=== PATIENT | female | born 1950 | race Asian ===

== ENCOUNTER 2018-11-05 18:09 | Inpatient (IN) | payer BC ==
[~2018-11-05] VITALS: Ht 152.4 cm; Wt 47.6 kg
[2018-11-05] MEDS ORDERED: ACET-2605 PO (18:30)
[2018-11-05] MEDS ORDERED: TRAZ-182 PO (18:30)
[2018-11-05] MEDS ORDERED: HYDR200T81 PO (18:30)
[2018-11-05] MEDS ORDERED: LOSA1TAB36 PO (18:30)
[2018-11-05] MEDS ORDERED: THYR30TA2 PO (18:30)
[2018-11-05] MEDS ORDERED: LORA0.5T PO (18:30)
[2018-11-05] MEDS ORDERED: DIVA125T2 PO (18:30)
--- NOTE | 2018-11-05 18:44 | NUR ---
DR DENIS AT BEDSIDE FOR EVAL.
--- NOTE | 2018-11-05 18:51 | NUR ---
IV LINE STARTED BLOOD DRAWN AND SENT TO LAB.
--- NOTE | 2018-11-05 18:56 | NUR ---
RADIOLOGY AT BEDSIDE FOR CHEST XRAY.
[2018-11-05 19:00] LABS: BASOPHILS % (AUTO) 0.4 % (0.0-2.0); EOSINOPHILS % (AUTO) 0.1 % (0.0-6.0); HEMATOCRIT 37 % (33-45); HEMOGLOBIN 12.3 g/dL (11.5-14.8); LYMPHOCYTES % (AUTO) 9.9 % (20.0-44.0); MEAN CORPUSCULAR HGB CONC 34 g/dl (31.0-36.0); MEAN CORPUSCULAR VOLUME 97 fL (82-100); MONOCYTES % (AUTO) 9.7 % (2.0-12.0); NEUTROPHILS # (AUTO) 8.4 /CMM (1.8-8.9); NEUTROPHILS % (AUTO) 79.9 % (43.0-81.0); PLATELET COUNT (AUTO) 381 /CMM (150-450); RED BLOOD CELL COUNT(AUTO) 3.75 MIL/uL (4.0-5.2); WHITE BLOOD COUNT (AUTO) 10.5 K/uL (4.3-11.0)
[2018-11-05] MEDS ORDERED: PIPERACILLIN /TAZOBACTAM 3.375 G in IV D5W 50 ML IV ONE (19:00)
[2018-11-05] MEDS ORDERED: IV NS 0.9% 1,000 ML BAG IV ONE (19:00)
[2018-11-05] MEDS ORDERED: ACETAMINOPHEN 650 MG/SUPP.RECT RC ONE (19:00)
[2018-11-05 19:20] LABS: CALCIUM, SERUM 8.6 mg/dL (8.5-10.1); CARBON DIOXIDE 37 mmol/L (21-32); CHLORIDE 103 mmol/L (98-107); CREATININE 0.7 mg/dL (0.6-1.3); GLUCOSE 127 mg/dL (74-106); POTASSIUM 3.8 mmol/L (3.5-5.1); SODIUM SERUM 143 mmol/L (136-145); UREA NITROGEN, BLOOD 29 mg/dL (7-18)
--- NOTE | 2018-11-05 19:22 | NUR ---
REPORT TO LILI MORA FOR TRANSFER OF CARE.
--- NOTE | 2018-11-05 19:23 | NUR ---
RECEIVED REPORT FROM KELLY MORA FOR XIAO
[2018-11-05 19:26] LABS: ALANINE AMINOTRANSFERASE 23 U/L (12-78); ALBUMIN 2.6 g/dL (3.4-5.0); ALKALINE PHOSPHATASE 70 U/L (46-116); ASPARTATE AMINOTRANSFERASE 38 U/L (15-37); BILIRUBIN,DIRECT 0.2 mg/dL (0.0-0.2); BILIRUBIN,TOTAL 0.5 mg/dL (0.2-1.0); TOTAL PROTEIN, SERUM 6.8 g/dL (6.4-8.2)
[2018-11-05 19:31] LABS: BILIRUBIN,URINE MODERATE (NEGATIVE); BLOOD, URINE Moderate Ery/uL (NEGATIVE); KETONES,URINE 15 (NEGATIVE); LEUKOCYTE ESTERASE ,URINE Negative (NEGATIVE); NITRITE, URINE Negative (NEGATIVE); PH,URINE 5.5 (5.0-8.0); PROTEIN,URINE 30 mg/dl (NEGATIVE); UGLUCOSE Negative (NEGATIVE)
[2018-11-05 19:38] LABS: APPEARANCE,URINE HAZY (CLEAR)
[2018-11-05 19:39] LABS: BACTERIA,URINE Rare /HPF (None Seen); COLOR,URINE DARK YELLOW (YELLOW); SQUAMOUS EPITHELIAL CELL,UR Few /HPF (None Seen); WBC,URINE 0-2 /HPF (0-3)
[2018-11-05 19:40] LABS: MUCUS,URINE Moderate /LPF (None Seen); URINE AMORPHOUS URATE Few /HPF (None Seen)
--- NOTE | 2018-11-05 19:42 | NUR ---
PER VERBAL MD ORDER, WILL INFUSE 2,000ML NS INSTEAD OF 3,000ML NS
[2018-11-05] MEDS ORDERED: VANCOMYCIN 1 GM in IV D5W 250 ML IV ONE (20:00)
--- NOTE | 2018-11-05 20:16 | NUR ---
307-1 SEPSIS, DIPAK DNP
--- NOTE | 2018-11-05 20:24 | NUR ---
GAVE REPORT TO NGUYỄN MORA FOR XIAO
[2018-11-05] MEDS ORDERED: HYDROCODONE/APAP 5/325MG 1 EACH TABLET PO PRN (20:30)
[2018-11-05] MEDS ORDERED: ONDANSETRON HCL/PF 4 MG/2 ML VIAL IVP PRN (20:30)
[2018-11-05] MEDS ORDERED: MAG HYDROX/AL HYDROX/SIMETH 30 ML UDC PO PRN (20:30)
[2018-11-05] MEDS ORDERED: MORPHINE SULFATE INJ 2 MG/ML DISP.SYRIN IV PRN (20:30)
[2018-11-05] MEDS ORDERED: LORAZEPAM 0.5 MG TABLET PO PRN (20:30)
[2018-11-05] MEDS ORDERED: MAGNESIUM HYDROXIDE 30 ML UDC PO PRN (20:30)
[2018-11-05] MEDS ORDERED: Z GUARD REMEDY 2 OZ OINT TP PRN (20:30)
[2018-11-05] MEDS ORDERED: ACETAMINOPHEN 325 MG TABLET PO PRN (20:30)
[2018-11-05 22:00] VITALS: BP_SYST 121; BP_SYST 144; BP_DIAS 72; BP_DIAS 83
[2018-11-05] MEDS ORDERED: ENOXAPARIN SODIUM 40 MG/0.4 ML DISP.SYRIN SQ ONE (22:00)
[2018-11-05 22:15] VITALS: BP 121/72
--- NOTE | 2018-11-05 22:15 | NUR ---
PT TRANSFERRED PER ACLS PROTOCOL
--- NOTE | 2018-11-05 22:15 | NUR ---
RN MS ADMITTING OPENING NOTES RECEIVED PATIENT FROM ER VIA GURNEY SAFELY TRANSFERRED TO BED, AWAKE ALERT X1 , NOTED WITH UNCLEAR GARBLE SPEECH, MOSTLY NON VERBAL, RESPIRATIONS EVEN AND UNLABORED WITH EQUAL RISE AND FALL OF CHEST, APPEARS FREE OF ANY PAIN OR DISCOMFORT AT THIS TIME, NO FACIAL GRIMACING PRESENT, NO MOANS PRESENT, NO SOB PRESENT, REMAINS AFEBRILE AT THIS TIME, ESTEVEZ CATHETER INTACT AND DRAINING URINE VIVI AND HEMATURIA PRESENT, DRAINING WELL, WITH PROPER ALIGNMENT, RIGHT AC#18 G INTACT AND PATENT, NO REDNESS, NO INFILTRATION PRESENT, BODY ASSESSMENT DONE PICTURES TAKEN PLACED IN CHART NOTED WITH LEFT AND RIGHT HEEL AND PLANTAR SCATTERED REDNESS, LEFT ANKLE REDNESS, LEFT 5TH METATARSAL REDNESS, LEFT INNER AND OUR ARM ABRASION, SACRAL DECUB, LET HIP REDNESS, WOUND CARE DONE, KEPT CLEAN AND DRY, WILL PLACE KCI MATTRESS, REPOSITIONED OFFLOADED AFFECETED AREAS, RAILS COVERED WITH CUSHION TO PROVIDE PROTECTION, SAFETY PRECAUTIONS IN PLACE, LOW BED AND LOCKED, WILL CONTINUE TO FOLLOW MD ORDERS, PATIENT APPEARS COMFORTABLE AT THIS TIME, ORIENTED TO STAFF AND CALL LIGHT AND KEPT WITHIN REACH.
--- NOTE | 2018-11-05 22:45 | NUR ---
RN MS NOTES KCI MATTRESS PLACED.
[2018-11-05] MEDS: IV NS 0.9% 1,000 ML IV PRN (23:32)
[2018-11-05] MEDS: DIVALPROEX SODIUM 125 MG TABLET.DR PO SCH (23:33)
[2018-11-05] MEDS: TRAZODONE 50 MG TABLET PO SCH (23:33)
[2018-11-06] MEDS ORDERED: PIPERACILLIN /TAZOBACTAM 3.375 G VIAL IV ONE (00:11)
[2018-11-06] MEDS ORDERED: ZOSYN IVPB 3.375 G in IV D5W 50ml IV ONE (01:00)
[2018-11-06 06:08] LABS: BASOPHILS % (AUTO) 0.3 % (0.0-2.0); EOSINOPHILS % (AUTO) 0.6 % (0.0-6.0); HEMATOCRIT 30 % (33-45); LYMPHOCYTES % (AUTO) 14.1 % (20.0-44.0); MEAN CORPUSCULAR HGB CONC 34 g/dl (31.0-36.0); MEAN CORPUSCULAR VOLUME 97 fL (82-100); MONOCYTES # (AUTO) 0.6 /CMM (0.1-1.30); MONOCYTES % (AUTO) 7.9 % (2.0-12.0); NEUTROPHILS # (AUTO) 5.4 /CMM (1.8-8.9); NEUTROPHILS % (AUTO) 77.1 % (43.0-81.0); PLATELET COUNT (AUTO) 296 /CMM (150-450); RED BLOOD CELL COUNT(AUTO) 3.07 MIL/uL (4.0-5.2); WHITE BLOOD COUNT (AUTO) 7.1 K/uL (4.3-11.0)
--- NOTE | 2018-11-06 06:25 | NUR ---
RN MS CLOSING NOTES PATIENT IN BED AWAKE ALERT X1 , NOTED WITH UNCLEAR GARBLE SPEECH, SMALL WORDS SAID, MOSTLY NON VERBAL, RESPIRATIONS EVEN AND UNLABORED WITH EQUAL RISE AND FALL OF CHEST, APPEARS FREE OF ANY PAIN OR DISCOMFORT AT THIS TIME, NO FACIAL GRIMACING PRESENT, NO MOANS PRESENT, NO SOB PRESENT, REMAINS AFEBRILE THROUGHOUT SHIFT ESTEVEZ CATHETER INTACT AND DRAINING URINE VIVI AND HEMATURIA PRESENT, DRAINING WELL, WITH PROPER ALIGNMENT, RIGHT AC#18 G INTACT AND PATENT, NO REDNESS, NO INFILTRATION PRESENT, IVF RUNNING ORDERED ,ABX GIVEN ORDERED, WOUND CARE DONE, KEPT CLEAN AND DRY, KCI MATTRESS IN PLACE, REPOSITIONED OFFLOADED AFFECTED AREAS, RAILS COVERED WITH CUSHION TO PROVIDE PROTECTION, SAFETY PRECAUTIONS IN PLACE, LOW BED AND LOCKED, , PATIENT APPEARS COMFORTABLE AT THIS TIME, CALL LIGHT A KEPT WITHIN REACH WILL CONTINUE TO MONITOR AND ENDORSE TO NEXT SHIFT.
[2018-11-06 06:30] LABS: CALCIUM, SERUM 7.6 mg/dL (8.5-10.1); CREATININE 0.6 mg/dL (0.6-1.3); MAGNESIUM 1.9 mg/dL (1.8-2.4); PHOSPHORUS 2.4 mg/dL (2.5-4.9); POTASSIUM 3.3 mmol/L (3.5-5.1)
[2018-11-06 06:35] LABS: THYROID STIMULATING HORMONE 10.314 uIU/mL (0.358-3.74)
--- NOTE | 2018-11-06 07:10 | NUR ---
MS/RN OPENING NOTE THE PATIENT IS RECEIVED IN BED. ALERT AND ORIENTED X1. IN ROOM AIR AND DENIES SOB. RESPIRATION REGULAR AND UNLABORED. DENIES PAIN. THE PATIENT IS IN NO APPARENT DISTRESS. ESTEVEZ CATH PREVENT. NO BLADDER DISTENSION NOTED. RAC G 18 PATENT AND NORMAL SALINE INFUSING AT 75ML/HR AND NO S/S INFILTRATION NOTED. BED LOW AND LOCKED. SIDE RAILS UP X3. CALL LIGHT WITHIN REACH. WILL CONTINUE TO MONITOR.
[2018-11-06 08:00] VITALS: BP 82/54
[2018-11-06] MEDS ORDERED: FEE PK DOSING 1 MIN EA MC ONE (08:06)
[2018-11-06 09:00] VITALS: BP 101/63
[2018-11-06] MEDS: LOSARTAN/HCTZ 50-12.5MG/ 1 EA TABLET PO SCH (09:00)
[2018-11-06] MEDS ORDERED: POTASSIUM CHLORIDE 20 MEQ TAB.PRT.SR PO SCH (09:30)
[2018-11-06] MEDS: THYROID 30 MG TABLET PO SCH (09:49)
[2018-11-06] MEDS: DIVALPROEX SODIUM 125 MG TABLET.DR PO SCH ×4 (09:49→21:25)
[2018-11-06] MEDS: VANCOMYCIN 500 MG in IV D5W 100 ML IV SCH ×2 (09:55→21:24)
[2018-11-06] MEDS ORDERED: K PHOS NEUTRAL 250 MG TABLET PO ONE (10:00)
--- NOTE | 2018-11-06 11:02 | NUR ---
MS/RN NOTE DR JIM IS MADE AWARE THAT THE PATIENT DOES NOT CHEW WELL BUT NO COUGH, CHOKING AND S/S ASPIRATION NOTED. ASKED MD TO CHANGE THE DIET TO PURRED DIET. ORDER IS RECEIVED. NOTED AND CARRIED OUT.
[2018-11-06] MEDS: HYDROXYCHLOROQUINE 200 MG TABLET PO SCH (11:08)
[2018-11-06] MEDS: PIPERACILLIN /TAZOBACTAM 2.25 G in IV D5W 50 ML IV SCH ×2 (11:56→17:52)
[2018-11-06] MEDS: IV NS 0.9% 1,000 ML IV PRN (13:01)
[2018-11-06 16:00] VITALS: BP 97/58
[2018-11-06 17:00] VITALS: BP 97/61
--- NOTE | 2018-11-06 17:57 | NUR ---
MS/RN CLOSING NOTE THE PATIENT IS ALERT AND ORIENTED X1. ABLE TO MAKE NEEDS KNOWN VERBALLY. THE PATIENT DENIES PAIN. IN ROOM AIR AND SATURATION IS AT 95%. DENIES SOB. THE PATIENT HAS NO S/S OF ANY DISTRESS.ESTEVEZ CATH DRAINING CLEAR AND YELLOW COLOR URINE. NO BLADDER DISTENSION NOTED. RAC G 18 PATENT AND NORMAL SALINE INFUSING AT 75ML/HR. NO S/S INFILTRATION NOTED. THE PATIENT IS ASSISTED DURING MEAL TIMES. FLUIDS ARE ENCOURAGED. TURNED AND REPOSITIONED. BED LOW AND LOCKED. SIDE RAILS UP X3 AND PADDED. CALL LIGHT WITHIN REACH. WILL ENDORSE TO PETROLEUM SUPPLY SPECIALIST.
--- NOTE | 2018-11-06 18:50 | NUR ---
Spoke with manager case management Flor [phone] pt resides at [facility]& [phone] ([id number] [facility]). Called and confirmed with Frankie. Pt has conservator [phone]. Current dc plan back to [facility] once medically stable. Cm to call Melissa [phone] to make arrangement. Addendum: 11/06/18 at 1850 by MARIANNE ESTEBAN CMG Amended: Links added.
--- NOTE | 2018-11-06 19:30 | NUR ---
RECEIVED PATIENT IN BED AWAKE. AO X 1, VERBALLY RESPONSIVE. NO ACUTE DISTRESS NOTED. NO SIGNS OF PAIN NOTED. IV SITE PATENT, INTACT; IVF INFUSING ORDERED. ESTEVEZ CATH PATENT, INTACT; DRAINING CLEAR DARK YELLOW URINE. SAFETY REMINDERS GIVEN. ON LOW BED WITH BILATERAL UPPER SIDE RAILS UP. CALL DAVIS WITHIN EASY REACH. WILL CONTINUE TO MONITOR.
[2018-11-06 20:00] VITALS: BP 97/65
[2018-11-06 20:09] VITALS: BP 97/65
[2018-11-06] MEDS: TRAZODONE 50 MG TABLET PO SCH (21:24)
[2018-11-06] MEDS: ENOXAPARIN SODIUM 40 MG/0.4 ML DISP.SYRIN SQ SCH (21:25)
[2018-11-07] MEDS: PIPERACILLIN /TAZOBACTAM 2.25 G in IV D5W 50 ML IV SCH ×2 (00:50→06:11)
--- NOTE | 2018-11-07 06:00 | NUR ---
PATIENT ASLEEP, EASILY AROUSABLE. RESPIRATIONS EVEN. NO SIGNS OF PAIN NOTED. DUE MEDS GIVEN WITH NO ASE NOTED. NEEDS ATTENDED. TURNED AND REPOSITIONED Q 2 HOURS. KEPT SILVIA, DRY, AND COMFORTABLE. SAFETY PRECAUTIONS AND COMFORT MEASURES IN PLACE. WILL GIVE REPORT TO DAY SHIFT FOR CONTINUITY OF CARE.
[2018-11-07] MEDS: IV NS 0.9% 1,000 ML IV PRN (06:11)
[2018-11-07 07:50] VITALS: BP 93/54
[2018-11-07 07:56] VITALS: BP 93/54
--- NOTE | 2018-11-07 08:00 | NUR ---
RN NOTES SEEN PATIENT IN THE BED AWAKE. PATIENT KEEP MOVING BECAUSE OF HAM DISEASE, PATIENT CONFUSED, BUT REDIRECTABLE., AND TOTAL CARE. PATIENT HAS HO ACUTE RESPIRATORY DISTRESS, V/S TAKEN BP 93/56, P-58, HELD BP MEDICATION. Dr. JIM AWARE OF, NO NEW ORDER CONTINUE MONITORING. ADMINISTERED SCHEDULED MEDICATION, KEEP HOP ELEVATED FOR ASPIRATION PRECAUTION. PER PACKER INSPECTOR PATIENT EAT 15%. ASSIST TURN AND REPOSTION Q 2 HR. PATIENT HAS SACRAL WOUND STAGE FOUR. INFUSING NS AT 100 ML/HR ON RIGHT AC AREA INTACT. F/C DRAIN LIGHT YELLOW OUTPUT. CALL LIGHT WITHIN TO REACH. SAFETY PRECAUTION MAINTAINED ALL THE TIME.
[2018-11-07 08:11] LABS: BASOPHILS % (AUTO) 0.4 % (0.0-2.0); EOSINOPHILS % (AUTO) 1.1 % (0.0-6.0); HEMATOCRIT 27 % (33-45); HEMOGLOBIN 9.3 g/dL (11.5-14.8); LYMPHOCYTES # (AUTO) 0.9 /CMM (0.8-4.8); MEAN CORPUSCULAR HGB CONC 34 g/dl (31.0-36.0); MEAN CORPUSCULAR VOLUME 96 fL (82-100); MONOCYTES # (AUTO) 0.4 /CMM (0.1-1.30); MONOCYTES % (AUTO) 8.5 % (2.0-12.0); NEUTROPHILS # (AUTO) 3.6 /CMM (1.8-8.9); PLATELET COUNT (AUTO) 261 /CMM (150-450); RED BLOOD CELL COUNT(AUTO) 2.82 MIL/uL (4.0-5.2)
[2018-11-07 08:15] LABS: CALCIUM, SERUM 7.4 mg/dL (8.5-10.1); CREATININE 0.5 mg/dL (0.6-1.3); PHOSPHORUS 2.1 mg/dL (2.5-4.9); POTASSIUM 3.3 mmol/L (3.5-5.1)
[2018-11-07] MEDS: LOSARTAN/HCTZ 50-12.5MG/ 1 EA TABLET PO SCH (09:00)
[2018-11-07] MEDS: DIVALPROEX SODIUM 125 MG TABLET.DR PO SCH ×4 (09:10→21:23)
[2018-11-07] MEDS: THYROID 30 MG TABLET PO SCH (09:10)
[2018-11-07] MEDS: HYDROXYCHLOROQUINE 200 MG TABLET PO SCH (09:10)
[2018-11-07] MEDS: VANCOMYCIN 500 MG in IV D5W 100 ML IV SCH (09:11)
[2018-11-07] MEDS ORDERED: POTASSIUM CHLORIDE 20 MEQ TAB.PRT.SR PO SCH (09:30)
--- NOTE | 2018-11-07 10:13 | NUR ---
RN NOTES SEEN PATIENT BY WOUND NURSE CHAYA MORA, PATIENT WILL FOLLOW WITH SURGEON Dr. PACHECO. DRESSING CHANGED ON SACRAL AREA, APPLIED MEPILEX, AND ASSIST TURN AND REPOSITION Q 2 HR. PRIVET CHAIN SALES REPRESENTATIVE NEXT TO THE BED, NEEDS ATTENDED AND ANTICIPATED. CALL LIGHT WITHIN TO REACH.
--- NOTE | 2018-11-07 10:34 | NUR ---
WOUND CARE CONSULT: PT PRESENTS WITH STAGE 4 ULCER TO SACRUM AND INTACT DEEP TISSUE INJURY TO LEFT LATERAL ANKLE, PRESENT ON ADMISSION. SCARRING NOTED TO LOWER EDGE OF SACRAL WOUND AND RT BUTTOCK, PRESENT ON ADMISSION. RECOMMEND SURGICAL CONSULT FOR SACRAL WOUND. DR ROCK PACHECO NOTIFIED OF CONSULT REQUEST. RECOMMENDATIONS MADE FOR SKIN PROTECTION AND WOUND CARE. DISCUSSED WITH NURSING STAFF. PT ON FIRST STEP [facility] MATTRESS. HERB DANGELO NOTED. WILL SEE PRN. HODGE IN AGREEMENT WITH PLAN OF CARE. Addendum: 11/07/18 at 1037 by CHAYA WAGNERDNU Amended: Links added. Addendum: 11/07/18 at 1104 by CHAYA WAGNERDNU LEFT LATERAL ANKLE AND LATERAL FOOT INTACT DEEP TISSUE INJURIES NOTED PRESENT ON ADMISSION. NAILS SLIGHTLY LONG. DPM CONSULT RECOMMENDED. DR BURDICK NOTIFIED OF CONSULT REQUEST FOR DPM.
[2018-11-07] MEDS ORDERED: K PHOS NEUTRAL 250 MG TABLET PO ONE (11:00)
[2018-11-07] MEDS ORDERED: HYDROGEL DRESSING 90 GM TUBE TP PRN (11:00)
[2018-11-07] MEDS: HYDROGEL DRESSING 90 GM TUBE TP SCH (12:09)
[2018-11-07] MEDS: PIPERACILLIN /TAZOBACTAM 3.375 G in IV D5W 100 ML IV SCH ×2 (12:13→21:20)
--- NOTE | 2018-11-07 13:00 | NUR ---
RN NOTES PATIENT IN THE BED INFUSING VANCOMYCIN 250 MG/ML ON LEFT FA INTACT, ASSIST PATIENT TURN AND REPOSTION Q 2 HR, ELECTRICIAN APPRENTICE POWERHOUSE NEXT TO THE BED, SAFETY PRECAUTION MAINTAINED ALL THE TIME.
[2018-11-07] MEDS: VANCOMYCIN 1 GM in IV D5W 250 ML IV SCH (13:52)
[2018-11-07 16:00] VITALS: BP 111/70
[2018-11-07 16:17] VITALS: BP 111/70
[2018-11-07] MEDS: LACTOBACILLUS RHAMNOSUS GG 1 EACH CAP.SPRINK PO SCH (17:36)
--- NOTE | 2018-11-07 18:30 | NUR ---
RN NOTES PATIENT STABLE , REFUSED PAIN AT THIS TIME, INFUSING NS AT 75 ML/HR ON RIGHT AC AREA INTACT. ASSIST PATIENT TURN AND REPOSTION Q 2 HR. PRIVET BEVEL GEAR GENERATOR OPERATOR NEXT TO THE BED. F/C DRAINING LIGHT YELLOW OUTPUT. CALL LIGHT WITHIN TO REACH. ENDORSED ONCOMING NURSE FOR PLAN OF CARE.
--- NOTE | 2018-11-07 19:40 | NUR ---
MS/RN OPENING NOTES PT RECEIVED AWAKE, CAREGIVER AT BEDSIDE. ON ROOM AIR, BREATHING EVEN AND UNLABORED. NO SOB OR PAIN NOTED. IN NO ACUTE DISTRESS. IV TO LFA AND RAC PATENT AND INTACT RUNNING IVF ORDERED. HOB ELEVATED. BILAT. UPPER SIDE RAILS IN PLACE. ESTEVEZ IN PLACE AND DRAINING TO GRAVITY. BED IN LOW/LOCKED POSITION WITH CALL LIGHT IN REACH. WILL CONTINUE TO MONITOR
[2018-11-07 20:00] VITALS: BP 109/57
[2018-11-07] MEDS: ENOXAPARIN SODIUM 40 MG/0.4 ML DISP.SYRIN SQ SCH (21:21)
[2018-11-07] MEDS: TRAZODONE 50 MG TABLET PO SCH (21:23)
--- NOTE | 2018-11-08 00:33 | NUR ---
MS/RN NOTES ROUNDS PERFORMED. REPOSITIONED PT. HEELS OFFLOADED. CAREGIVER REMAINS AT BEDSIDE.
[2018-11-08] MEDS: VANCOMYCIN 1 GM in IV D5W 250 ML IV SCH ×2 (01:44→13:38)
[2018-11-08] MEDS: PIPERACILLIN /TAZOBACTAM 3.375 G in IV D5W 100 ML IV SCH ×3 (04:20→20:15)
--- NOTE | 2018-11-08 05:00 | NUR ---
MS/RN NOTES IV TO RAC INFILTRATED. INSERTED NEW IV TO RFA #22. GOOD BLOOD RETURN NOTED AND FLUSHES WELL. IVF RESUMED
[2018-11-08 07:07] LABS: CALCIUM, SERUM 7.8 mg/dL (8.5-10.1); CREATININE 0.5 mg/dL (0.6-1.3); PHOSPHORUS 2.7 mg/dL (2.5-4.9); POTASSIUM 3.2 mmol/L (3.5-5.1)
--- NOTE | 2018-11-08 07:29 | NUR ---
MS/RN CLOSING NOTES PT RESTING COMFORTABLY IN BED, CAREGIVER REMAINS AT BEDSIDE. ON ROOM AIR, BREATHING EVEN AND UNLABORED. NO SOB OR PAIN NOTED. NO FACIAL GRIMACING OR S/S OF PAIN. IN NO ACUTE RESPIRATORY DISTRESS. IV TO LFA AND RFA PATENT AND INTACT RUNNING IVF ORDERED. HOB ELEVATED. BILAT. UPPER SIDE RAILS IN PLACE. ESTEVEZ IN PLACE AND DRAINING TO GRAVITY. TURNED/REPOSITIONED Q2H, WOUND CARE RENDERED. ALL NEEDS MET. ASPIRATION PRECAUTIONS IMPLEMENTED. BED IN LOW/LOCKED POSITION WITH CALL LIGHT IN REACH. ENDORSED TO DAY SHIFT RN XIAO.
[2018-11-08] MEDS: LOSARTAN/HCTZ 50-12.5MG/ 1 EA TABLET PO SCH (07:30)
--- NOTE | 2018-11-08 07:35 | NUR ---
MS RN RECEIVED ON BED, SLEEPING, NO SOB NOTED, NO DISTRESS NOTED, MUSIC INTERN AT BEDSIDE, WILL MONITOR PATIENT'S CONDITION.
[2018-11-08 08:00] VITALS: BP 94/53
[2018-11-08] MEDS: THYROID 30 MG TABLET PO SCH (08:14)
[2018-11-08] MEDS: HYDROXYCHLOROQUINE 200 MG TABLET PO SCH (08:21)
[2018-11-08] MEDS: DIVALPROEX SODIUM 125 MG TABLET.DR PO SCH ×4 (08:21→21:19)
[2018-11-08] MEDS: LACTOBACILLUS RHAMNOSUS GG 1 EACH CAP.SPRINK PO SCH ×2 (08:22→18:15)
--- NOTE | 2018-11-08 09:00 | NUR ---
MS RN REFUSED BREAKFAST,DUE MEDS GIVEN BY STUDENTS,TOLERATED WELL.
[2018-11-08] MEDS: POTASSIUM CHLORIDE 20 MEQ TAB.PRT.SR PO SCH ×2 (10:41→13:39)
--- NOTE | 2018-11-08 12:00 | NUR ---
MS RN RECEIVED PHONE CALL FROM JUAQUIN RDZ BUT WAS TOLD THAT PATIENT HAS CONCERVATOR.
[2018-11-08 16:00] VITALS: BP 93/56
--- NOTE | 2018-11-08 16:00 | NUR ---
MS RN WAS SEEN BY SHANDRA JOSEPH OF DR. ILYA Tucker/ [place] TO HAVE A DEBRIDEMENT IN AM.
[2018-11-08] MEDS: HYDROGEL DRESSING 90 GM TUBE TP SCH (18:28)
[2018-11-08] MEDS: IV NS 0.9% 1,000 ML IV PRN (18:29)
--- NOTE | 2018-11-08 19:00 | NUR ---
ms rn on bed, no distress noted, new caregiver at bedside.
--- NOTE | 2018-11-08 19:43 | NUR ---
MS/RN OPENING NOTES PT RECEIVED WITH CAREGIVER AT BEDSIDE. PT IS AWAKE AND ALERT TO SELF. HOB ELEVATED. ON ROOM AIR, BREATHING EVEN AND UNLABORED. NO S/S OF SOB OR PAIN, NO FACIAL GRIMACING NOTED. IV TO LFA AND RFA PATENT AND INTACT. ESTEVEZ IN PLACE AND DRAINING TO GRAVITY. BED IN LOW/LOCKED POSITION WITH CALL LIGHT IN REACH. BILAT. UPPER SIDE RAILS IN PLACE. WILL CONTINUE TO MONITOR
[2018-11-08 20:00] VITALS: BP 91/57
[2018-11-08] MEDS: ENOXAPARIN SODIUM 40 MG/0.4 ML DISP.SYRIN SQ SCH (20:32)
--- NOTE | 2018-11-08 20:32 | NUR ---
MS/RN NOTES NOTIFIED TAX ADJUSTERRADHA REGARDING PT'S SCHEDULED SACRAL WOUND DEBRIDEMENT TOMORROW. WITH ORDERS TO HOLD LOVENOX TONIGHT.
[2018-11-08 20:34] VITALS: BP 91/57
[2018-11-08] MEDS: TRAZODONE 50 MG TABLET PO SCH (21:20)
[2018-11-09] MEDS: VANCOMYCIN 1 GM in IV D5W 250 ML IV SCH ×2 (01:05→13:57)
--- NOTE | 2018-11-09 04:30 | NUR ---
MS/RN NOTES PT REPOSITIONED WITH HELP OF CAREGIVER. SUPPLIES PLACED AT BEDSIDE FOR SACRAL WOUND DEBRIDEMENT. FLUIDS PROVIDED. NO ADDITIONAL NEEDS EXPRESSED
[2018-11-09] MEDS: PIPERACILLIN /TAZOBACTAM 3.375 G in IV D5W 100 ML IV SCH ×3 (04:33→20:58)
--- NOTE | 2018-11-09 06:45 | NUR ---
MS/RN CLOSING NOTES PT ASLEEP WITH CAREGIVER AT BEDSIDE. ON ROOM AIR, BREATHING EVEN AND UNLABORED. NO S/S OF SOB OR PAIN NOTED. ASPIRATION PRECAUTIONS IMPLEMENTED. HOB ELEVATED. TURNED/REPOSITIONED Q2H. HEELS OFFLOADED. IV TO RFA AND LFA PATENT AND INTACT. ESTEVEZ IN PLACE AND DRAINING TO GRAVITY. NO SIGNIFICANT CHANGES OVERNIGHT. ALL NEEDS MET. BED REMAINS IN LOW/LOCKED POSITION WITH CALL LIGHT IN REACH. BILATERAL UPPER SIDE RAILS IN PLACE. WILL ENDORSE TO DAY SHIFT RN XIAO.
[2018-11-09] MEDS: THYROID 30 MG TABLET PO SCH (07:30)
--- NOTE | 2018-11-09 07:30 | NUR ---
MS RN RECEIVED ON BED, AWAKE,W/ CAREGIVER AT BEDSIDE, NO DISTRESS NOTED, PATIENT FOR SACRAL DEBRIDEMENT TODAY,WILL MONITOR PATIENT.
[2018-11-09 08:00] VITALS: BP 110/66
[2018-11-09] MEDS: HYDROXYCHLOROQUINE 200 MG TABLET PO SCH (09:00)
[2018-11-09] MEDS: LACTOBACILLUS RHAMNOSUS GG 1 EACH CAP.SPRINK PO SCH ×2 (09:00→17:38)
[2018-11-09] MEDS: LOSARTAN/HCTZ 50-12.5MG/ 1 EA TABLET PO SCH (09:00)
[2018-11-09] MEDS: DIVALPROEX SODIUM 125 MG TABLET.DR PO SCH ×4 (09:00→21:00)
--- NOTE | 2018-11-09 09:00 | NUR ---
MS RN PATIENT FOR NPO FOR PROCEDURE.
--- NOTE | 2018-11-09 12:36 | NUR ---
MS RN TEXT SHANDRA FOR SCHEDULE, STILL WAITING FOR HER TO RESPOND.
[2018-11-09 13:16] LABS: CALCIUM, SERUM 7.9 mg/dL (8.5-10.1); CREATININE 0.5 mg/dL (0.6-1.3); POTASSIUM 3.3 mmol/L (3.5-5.1)
[2018-11-09] MEDS: IV NS 0.9% 1,000 ML IV PRN (13:54)
[2018-11-09 16:00] VITALS: BP 109/68
--- NOTE | 2018-11-09 17:00 | NUR ---
ms rn dressing to sacral area changed,kamar text back, will do it tonight or in am, dpoa notified.
[2018-11-09] MEDS: HYDROGEL DRESSING 90 GM TUBE TP SCH (17:35)
--- NOTE | 2018-11-09 18:10 | NUR ---
ms rn on bed, no distress noted,family at bedside.
--- NOTE | 2018-11-09 19:45 | NUR ---
MS TOW BAR DRIVER INITIAL NOTES SEEN PATIENT IN BED AWAKE AND ALERT WITH CAREGIVER AT THE BEDSIDE. SHE SEEM DISCOMFORT AND IN PAIN , FACIAL GRIMACE NOTED , SHE ALSO HAVE BOWEL MOVEMENT AT THIS TIME. SO I STARTED CLEANED HER UP TO MADE HER COMFORTABLE. DRESSING PATENT AND INTACT ON HER SACRUM AREA. NO SIGNS OF ANY ACUTE DISTRESS NOTED. IVF NS AT 75ML/HR STILL INFUSING ON HER RIGHT FOREARM AND HEPLOCK ON HER LEFT FOREARM PATENT AND INTACT. ESTEVEZ TO GRAVITY AND ON KCI MATTRESS WITH SIDE RAILS X2 UP AND BED IN LOW AND LOCK IN POSITION. KEPT HER WARM AND COMFORTABLE AT ALL TIMES. CAREGIVER AT THE BEDSIDE.
--- NOTE | 2018-11-09 19:55 | NUR ---
MS NET TECHNICAL ARCHITECT NOTES PAIN MGT. NORCO TABLET GIVEN PO GIVEN WITH APPLE SAUCE, NO ASPIRATION NOTED. REPOSITION HER FOR COMFORT. WILL CONTINUE MONITORING. CAREGIVER REMAIN AT THE BEDSIDE.
[2018-11-09 20:00] VITALS: BP 112/69
[2018-11-09] MEDS: ENOXAPARIN SODIUM 40 MG/0.4 ML DISP.SYRIN SQ SCH (21:02)
[2018-11-09 21:49] VITALS: BP 112/69
[2018-11-09] MEDS: TRAZODONE 50 MG TABLET PO SCH (22:59)
--- NOTE | 2018-11-09 23:00 | NUR ---
MS BUS AND TROLLEY INSPECTING DISPATCHER NOTES ROUTINE MEDS GIVEN WELL HER ANTIBIOTIC. NO ADVERSE REACTION NOTED. PT SEEMS NO MORE DISCOMFORT NOTED. KEPT HER WARM AND COMFORTABLE AT ALL TIMES. WILL CONTINUE MONITORING.
[2018-11-10] MEDS ORDERED: VANCOMYCIN 0.75 GM in IV D5W 250 ML IV SCH (01:00)
--- NOTE | 2018-11-10 03:12 | NUR ---
ms carpenter assistant notes pt remains asleep without any distress noted. IVF still infusing , respiration even and non-labored. caregiver at the bedside. kept her warm and comfortable at all times. place call light at reach. will continue monitoring.
[2018-11-10] MEDS: PIPERACILLIN /TAZOBACTAM 3.375 G in IV D5W 100 ML IV SCH ×3 (04:31→20:43)
[2018-11-10 07:32] LABS: CALCIUM, SERUM 8.3 mg/dL (8.5-10.1); CREATININE 0.5 mg/dL (0.6-1.3); POTASSIUM 3.1 mmol/L (3.5-5.1)
--- NOTE | 2018-11-10 07:45 | NUR ---
MS DERMATOLOGY NURSE CLOSING NOTES PT BACK TO SLEEP AFTER MORNING CARE DONE AND WOUND CARE TX DONE. STABLE AND SLEPT WELL. NO SIGNS OF ANY ACUTE DISTRESS NOTED. ALL DUE MEDS GIVEN AND ALL NEEDS MET. KEPT HER WARM AND COMFORTABLE AT ALL TIMES. CAREGIVER STILL AT THE BEDSIDE FOR SAFETY. ENDORSE TO AM NURSE FOR CONTINUITY OF CARE. PLACE CALL LIGHT AT REACH.
--- NOTE | 2018-11-10 07:50 | NUR ---
MS R N RECEIVE DON BED, AWAKE, ORIENTED X1-2 NOT IN NAY FORM OF DISTRESS, RESPIRATIONS EVEN AND UNLABORED,NO SOB NOTED, CAREGIVER AT BEDSIDE, WILL MONITOR PATIENT.
[2018-11-10 08:00] VITALS: BP 120/64
[2018-11-10] MEDS: LOSARTAN/HCTZ 50-12.5MG/ 1 EA TABLET PO SCH (09:00)
--- NOTE | 2018-11-10 09:30 | NUR ---
MS MORA BREAKFAST SERVED,DUE MEDS GIVEN, TOLERATED WELL.
--- NOTE | 2018-11-10 10:00 | NUR ---
MS RN WAS SEEN BY DR. ANA Tucker/ ORDERS MADE AND CARRIED OUT.
[2018-11-10] MEDS: DIVALPROEX SODIUM 125 MG TABLET.DR PO SCH ×4 (10:33→20:58)
[2018-11-10] MEDS: THYROID 30 MG TABLET PO SCH (10:33)
[2018-11-10] MEDS: HYDROXYCHLOROQUINE 200 MG TABLET PO SCH (10:33)
[2018-11-10] MEDS: LACTOBACILLUS RHAMNOSUS GG 1 EACH CAP.SPRINK PO SCH ×2 (10:33→17:45)
[2018-11-10] MEDS: POTASSIUM CHLORIDE 20 MEQ TAB.PRT.SR PO SCH ×2 (10:34→14:16)
--- NOTE | 2018-11-10 15:00 | NUR ---
MS RN DAUGHTER IN LAW PADMINI CALLED TWICE FOR UPDATES.
[2018-11-10 16:00] VITALS: BP 102/67
--- NOTE | 2018-11-10 16:54 | NUR ---
MS RN CHANGED DRESSING TO SACRAL WOUNDS.
[2018-11-10] MEDS: ENSURE ENLIVE 237 ML LIQUID (VANILLA) PO SCH (17:00)
[2018-11-10] MEDS: HYDROGEL DRESSING 90 GM TUBE TP SCH (17:47)
[2018-11-10] MEDS: IV NS 0.9% 1,000 ML IV PRN (17:54)
--- NOTE | 2018-11-10 18:45 | NUR ---
MS RN ON BED, NO DISTRESS NOTED, ALL NEEDS ATTENDED.
--- NOTE | 2018-11-10 19:28 | NUR ---
MS RN RECEIVE PT AWAKE IN BED, ALERT AND RESPONSIVE TO TO NAME CAREGIVER AT BEDSIDE STABLE, RESPIRATIONS EVEN AND UNLABORED, SAFETY MEASURES IN PLACE. WILL CONTINUE TO MONITOR.
[2018-11-10 20:00] VITALS: BP 125/66
[2018-11-10] MEDS: ENOXAPARIN SODIUM 40 MG/0.4 ML DISP.SYRIN SQ SCH (21:00)
[2018-11-10] MEDS: TRAZODONE 50 MG TABLET PO SCH (21:03)
[2018-11-11] MEDS: PIPERACILLIN /TAZOBACTAM 3.375 G in IV D5W 100 ML IV SCH ×2 (03:02→12:20)
--- NOTE | 2018-11-11 06:13 | NUR ---
MS RN ASLEEP AND EASILY AWAKEN, CAREGIVER AT BEDSIDE, SLEPT WELL THROUGHOUT THE SHIFT. TOLERATING ROOM AIR 99%. RESPIRATION EVEN AND UNLABORED, NEEDS ATTENDED AND ANTICIPATED, KEPT CLEAN AND DRY AND COMFORTABLE. NURSING CARE RENDERED, ESTEVEZ CATH DRAINING CLEAR YELLOW NO SEDIMENTS, NO HEMATURIA. NO CLOUDINESS. REPOSITIONED EVERY 2 HOURS AND PRN. OFFLOAD HEELS AND ELBOWS. NO S/S OF DISTRESS, GOOD SKIN CARE PROVIDED. SAFETY MEASURES AT ALL TIMES. ENDORSE TO THE NEXT SHIFT.
[2018-11-11 06:44] LABS: CALCIUM, SERUM 8.1 mg/dL (8.5-10.1); CREATININE 0.6 mg/dL (0.6-1.3); POTASSIUM 3.3 mmol/L (3.5-5.1)
--- NOTE | 2018-11-11 07:30 | NUR ---
MS RN OPENING NOTES RECEIVED PT LAYING IN BED W/ HOB SLIGHTLY ELEVATED. PT IS A/O X1-2, AFEBRILE. RESPIRATIONS ARE EVEN AND UNLABORED, NOT IN ANY ACUTE DISTRESS NOTED. NO FACIAL GRIMACING OR MOANING AT THIS TIME. IV SITE LFA/RFA INTACT, NO INFILTRATION NOTED. DRESSING KEPT CLEAN AND DRY. ESTEVEZ CATH IS IN PLACE, TUBING FREE OF KINKS, DRAINING CLEAR YELLOW URINE. CALL LIGHT IS LEFT WITHIN REACH. WILL MONITOR THROUGHOUT SHIFT FOR CONTINUITY OF CARE.
[2018-11-11] MEDS: THYROID 30 MG TABLET PO SCH (07:41)
[2018-11-11 07:44] VITALS: BP 132/68
[2018-11-11 08:00] VITALS: BP 132/68
[2018-11-11] MEDS: ENSURE ENLIVE 237 ML LIQUID (VANILLA) PO SCH ×3 (08:25→17:07)
[2018-11-11] MEDS: LACTOBACILLUS RHAMNOSUS GG 1 EACH CAP.SPRINK PO SCH ×2 (08:25→17:07)
[2018-11-11] MEDS: DIVALPROEX SODIUM 125 MG TABLET.DR PO SCH ×3 (08:25→17:07)
[2018-11-11] MEDS: LOSARTAN/HCTZ 50-12.5MG/ 1 EA TABLET PO SCH (08:26)
[2018-11-11] MEDS: HYDROXYCHLOROQUINE 200 MG TABLET PO SCH (08:44)
[2018-11-11] MEDS: HYDROGEL DRESSING 90 GM TUBE TP SCH (08:46)
[2018-11-11] MEDS ORDERED: POTASSIUM CHLORIDE 20 MEQ TAB.PRT.SR PO SCH (10:00)
[2018-11-11] MEDS: IV NS 0.9% 1,000 ML IV PRN (12:20)
--- NOTE | 2018-11-11 12:21 | NUR ---
MS RN NOTES-- PT ABLE TO MAKE NEEDS KNOWN, CG AT BEDSIDE. NEEDS MET AND RENDERED. WILL CONTINUE TO MONITOR.
[2018-11-11 16:00] VITALS: BP 124/67
--- NOTE | 2018-11-11 17:30 | NUR ---
MS RN NOTES-- CALLED [facility], SPOKE W/ RADHA, FOR REPORT.
--- NOTE | 2018-11-11 17:35 | NUR ---
MS RN NOTES-- EXPLAINED DISCHARGE PAPERWORK TO PT AND CG AT BEDSIDE W/ VERBAL AND WRITTEN UNDERSTANDING.
--- NOTE | 2018-11-11 19:33 | NUR ---
MS FRAME CLEANER NOTE PT DISCHARGED TO [facility] VIA GURNEY IN STABLE CONDITION. PT IS A/O X1, AFEBRILE. RESPIRATIONS ARE EVEN AND UNLABORED, NOT IN ANY ACUTE DISTRESS NOTED. NO FACIAL GRIMACING OR MOANING. IV SITE TO LFA/RFA G22 INTACT. PER RN AT [facility] TO KEEP IVS IN FOR IV ATB ADMINISTRATION. ESTEVEZ CATH IN PLACE, TUBING FREE OF KINKS AND DRAINING WELL, CLEAR/YELLOW URINE. ABDOMEN IS SOFT AND NONDISTENDED, BOWEL SOUNDS ARE PRESENT IN ALL 4 QUADRANTS UPON AUSCULTATION. DENIES ANY BLADDER DISCOMFORT. WOUND CARE DONE PRIOR TO LEAVING. BEDSIDE ENDORSEMENT GIVEN TO EMT PERSONNEL. ALL BELONGINGS SENT WITH PT. PT LEFT IN STABLE CONDITION.
== END 2018-11-11 19:40 | DRG 853 ==
LOC: ER 18:09 → TELE 21:26 → MED 22:25
PROVIDERS: ADMIT Hospitalist; ATTEND Internal Medicine
PROC: 0QB10ZZ Excision of Sacrum, Open Approach (ICD-10-PCS; principal; 2018-11-09)
DX: A41.9 Sepsis, unspecified organism (principal); N17.0 Acute kidney failure with tubular necrosis; E43 Unspecified severe protein-calorie malnutrition; L89.154 Pressure ulcer of sacral region, stage 4; G10 Huntington's disease; E87.2 Acidosis; F03.90 Unspecified dementia, unspecified severity, without behavioral disturbance, psychotic disturbance, mood disturbance, and anxiety; I10 Essential (primary) hypertension; E03.9 Hypothyroidism, unspecified; Z79.899 Other long term (current) drug therapy; E87.6 Hypokalemia; D64.9 Anemia, unspecified; B35.1 Tinea unguium
CPT/HCPCS: 36415; 71045-TC; 80048-TC; 80061-TC; 80076-TC; 80202-TC; 81000-TC; 83605-TC; 83735-TC; 84100-TC; 84439-TC; 84443-TC; 84484-TC; 85025-TC; 85730-TC; 87040-TC; 87081-TC; 87086-TC; 97110-TC; 97112-TC; A6248; A6253; A6402; A6403; G0378; J1650; J2543; J3370; J7030; J7060